=== PATIENT | female | born 1970 | race Caucasian/White ===

== ENCOUNTER 2019-08-15 04:43 | Emergency (ER) | payer OTHER ==
[~2019-08-15] VITALS: Ht 160 cm; Wt 76.2 kg
[2019-08-15 04:46] VITALS: BP 178/110
--- NOTE | 2019-08-15 06:41 | NUR ---
DR GRIGGS AT BEDSIDE
[2019-08-15 06:55] VITALS: BP 148/86
--- NOTE | 2019-08-15 06:55 | NUR ---
Patient discharged with v/s stable. Written and verbal after care instructions given and explained. Patient alert, oriented and verbalized understanding of instructions. Ambulatory with steady gait. All questions addressed prior to discharge. ID band removed. Patient advised to follow up with PMD. Rx of PROMETHAZINE given. Patient educated on indication of medication including possible reaction and side effects. Opportunity to ask questions provided and answered. INSTRUCTED TO CONTINUE TAKING MEDICATIONS PRESCRIBED BY PCP
--- NOTE | 2019-08-16 17:49 | NUR ---
message left on answering machine to call [facility] back [phone] repeat cxr with nipples markers as requested by instructed to return tonight or tomorrow morning
--- NOTE | 2019-08-17 06:28 | NUR ---
CALLED AND LEFT MESSAGE FOR CALL BACK AND F/U CARE.
== END 2019-08-15 06:55 | disposition home or self-care (01) ==
LOC: MED 04:43
DX: R05 Cough (principal)
CPT/HCPCS: 71046; 99283

== ENCOUNTER 2023-03-16 12:30 | Emergency (ER) | payer OTHER ==
[~2023-03-16] VITALS: Ht 165.1 cm; Wt 84.8 kg
[2023-03-16 12:39] VITALS: BP 185/109
--- NOTE | 2023-03-16 12:45 | NUR ---
AMB. TO BED 3 WITH NO DISTRESS
[2023-03-16] MEDS ORDERED: PROM118S5 PO (13:49)
[2023-03-16] MEDS ORDERED: ALBU0.0912 IH (13:53)
[2023-03-16] MEDS ORDERED: PRED50TA2 PO (13:53)
--- NOTE | 2023-03-16 14:41 | NUR ---
Patient discharged with v/s stable. Written and verbal after care instructions given and explained. Patient alert, oriented and verbalized understanding of instructions. Ambulatory with to home. All questions addressed prior to discharge. ID band removed. Patient advised to follow up with PMD. Rx of PROVENTIL,PROMETHAZINE, PREDNISONE given. Patient educated on indication of medication including possible reaction and side effects. Opportunity to ask questions provided and answered.
== END 2023-03-16 14:37 | disposition home or self-care (01) ==
LOC: MED 12:30
DX: J20.9 Acute bronchitis, unspecified (principal); F17.210 Nicotine dependence, cigarettes, uncomplicated; Z79.899 Other long term (current) drug therapy; Z72.89 Other problems related to lifestyle
CPT/HCPCS: 71045; 99283; Q0092

== ENCOUNTER 2023-04-26 15:42 | Emergency (ER) | payer OTHER ==
[~2023-04-26] VITALS: Ht 162.6 cm; Wt 82.2 kg
[~2023-04-26 15:42] MED LIST: ALBU0.0912 IH; PRED50TA2 PO; PROM118S5 PO
[2023-04-26 15:55] VITALS: BP 193/119; PULSE 77; RESP 20; TEMP 96.8; O2SAT 99
[2023-04-26 16:32] LABS: BASOPHILS % (AUTO) 0.4 % (0.0-2.0); EOSINOPHILS # (AUTO) 0.2 K/uL (0-0.4); EOSINOPHILS % (AUTO) 2.1 % (0.0-4.0); LYMPHOCYTES # (AUTO) 1.6 K/uL (2.5-16.5); LYMPHOCYTES % (AUTO) 22.5 % (20.5-51.1); MEAN CORPUSCULAR HEMOGLOBIN 25 pg (27-31); MEAN CORPUSCULAR HGB CONC 33 g/dL (33-37); MEAN CORPUSCULAR VOLUME 76.2 fL (80-94); MONOCYTES # (AUTO) 0.5 K/uL (0.8-1.0); MONOCYTES % (AUTO) 7.2 % (1.7-9.3); NEUTROPHILS # (AUTO) 4.8 K/uL (1.8-7.7); NEUTROPHILS % (AUTO) 67.8 % (42.2-75.2); PLATELET COUNT (AUTO) 205 K/uL (140-450); RED BLOOD CELL COUNT(AUTO) 5.64 MIL/uL (4.20-5.40); RED CELL DISTRIBUTION WIDTH 14.8 % (11.6-13.7); WHITE BLOOD COUNT (AUTO) 7.1 K/uL (4.8-10.8)
[2023-04-26 17:15] LABS: ALBUMIN 3.5 g/dL (3.4-5.0); CARBON DIOXIDE 30.7 mmol/L (21-32); CREATININE 0.7 mg/dL (0.6-1.3); POTASSIUM 3.7 mmol/L (3.5-5.1); TOTAL BILIRUBIN 0.3 mg/dL (0.0-1.0)
[2023-04-26] MEDS ORDERED: lisinopriL 20 MG TAB PO ONE (18:10)
[2023-04-26] MEDS ORDERED: AMLO10TA89 PO (18:18)
[2023-04-26 19:51] VITALS: BP 182/95; PULSE 75; RESP 14; TEMP 96.8; O2SAT 99
--- NOTE | 2023-04-26 19:51 | NUR ---
Patient discharged with v/s stable. Written and verbal after care instructions given and explained. Patient alert, oriented and verbalized understanding of instructions. Ambulatory with steady gait. All questions addressed prior to discharge. ID band removed. Patient advised to follow up with PMD. Rx of AMLODIPINE given. Patient educated on indication of medication including possible reaction and side effects. Opportunity to ask questions provided and answered.
== END 2023-04-26 19:51 | disposition home or self-care (01) ==
LOC: MED 15:42
DX: R11.0 Nausea (principal); R42 Dizziness and giddiness; R41.0 Disorientation, unspecified; E11.9 Type 2 diabetes mellitus without complications; I10 Essential (primary) hypertension; Z79.899 Other long term (current) drug therapy; Z20.822 Contact with and (suspected) exposure to COVID-19
CPT/HCPCS: 36415; 80053; 81002; 81025; 83690; 84484; 85025; 93005; 99284

== ENCOUNTER 2024-03-21 12:54 | Emergency (ER) | payer SELFPAY ==
[~2024-03-21] VITALS: Ht 165.1 cm; Wt 84.0 kg
[~2024-03-21 12:54] MED LIST changes: +AMLO10TA89 PO
[2024-03-21 13:08] VITALS: BP 195/103; PULSE 71; RESP 20; TEMP 97.7; O2SAT 97
[2024-03-21 13:17] VITALS: O2SAT 97
[2024-03-21 14:03] LABS: BILIRUBIN,URINE NEGATIVE (NEGATIVE); BLOOD, URINE 2+ (NEGATIVE); COLOR,URINE YELLOW (YELLOW); LEUKOCYTE ESTERASE ,URINE 1+ (NEGATIVE); NITRITE, URINE NEGATIVE (NEGATIVE); PROTEIN,URINE 1+ (NEGATIVE); UGLUCOSE NEGATIVE (NEGATIVE); UROBILINOGEN,URINE 0.2 EU/dL (0.2 - 1)
[2024-03-21 14:07] LABS: BASOPHILS % (AUTO) 0.2 % (0.0-2.0); EOSINOPHILS # (AUTO) 0.1 K/uL (0-0.4); EOSINOPHILS % (AUTO) 1.3 % (0.0-4.0); HEMATOCRIT 45.8 % (36-48); HEMOGLOBIN 15.2 g/dL (12.0-16.0); LYMPHOCYTES # (AUTO) 1.4 K/uL (2.5-16.5); LYMPHOCYTES % (AUTO) 16.2 % (20.5-51.1); MEAN CORPUSCULAR HEMOGLOBIN 25 pg (27-31); MEAN CORPUSCULAR HGB CONC 33 g/dL (33-37); MEAN CORPUSCULAR VOLUME 75.9 fL (80-94); MONOCYTES # (AUTO) 0.4 K/uL (0.8-1.0); NEUTROPHILS # (AUTO) 6.7 K/uL (1.8-7.7); NEUTROPHILS % (AUTO) 77.3 % (42.2-75.2); PLATELET COUNT (AUTO) 225 K/uL (140-450); RED BLOOD CELL COUNT(AUTO) 6.04 MIL/uL (4.20-5.40); RED CELL DISTRIBUTION WIDTH 14.9 % (11.6-13.7); WHITE BLOOD COUNT (AUTO) 8.7 K/uL (4.8-10.8)
[2024-03-21 14:08] LABS: APPEARANCE,URINE SLIGHTLY HAZY (CLEAR)
[2024-03-21] MEDS: ENALAPRILAT 2.5 MG/2 ML VIAL IVP ONE (14:09)
[2024-03-21 14:25] LABS: ANION GAP 9.2 (8-16); CALCIUM 9.2 mg/dL (8.5-10.1); CARBON DIOXIDE 32.5 mmol/L (21-32); CREATININE 0.7 mg/dL (0.6-1.3); POTASSIUM 3.7 mmol/L (3.5-5.1)
[2024-03-21 14:31] LABS: ALANINE AMINOTRANSFERASE 37 U/L (12-78); ALBUMIN 3.4 g/dL (3.4-5.0); ALKALINE PHOSPHATASE 110 U/L (50-136); ASPARTATE AMINOTRANSFERASE 20 U/L (15-37); BILIRUBIN,DIRECT 0.1 mg/dL (0.0-0.3); TOTAL BILIRUBIN 0.3 mg/dL (0.0-1.0); TOTAL PROTEIN, SERUM 6.9 g/dL (6.4-8.2)
[2024-03-21 14:33] LABS: BACTERIA,URINE 2+ /HPF (None Seen); MUCUS,URINE None Seen /LPF (None Seen); SQUAMOUS EPITHELIAL CELL,UR 4-10 (MOD) /LPF (0-3 (FEW))
[2024-03-21 15:06] VITALS: O2SAT 98
[2024-03-21] MEDS ORDERED: NITR100C7 PO (15:26)
[2024-03-21] MEDS ORDERED: HYDR12.51 PO (15:26)
[2024-03-21 15:34] VITALS: BP 171/100; PULSE 76; RESP 18; TEMP 98.2; O2SAT 98
== END 2024-03-21 15:34 | disposition home or self-care (01) ==
LOC: MED 12:54
DX: N39.0 Urinary tract infection, site not specified (principal); I10 Essential (primary) hypertension; E11.9 Type 2 diabetes mellitus without complications; Z79.899 Other long term (current) drug therapy; Z79.4 Long term (current) use of insulin
CPT/HCPCS: 36415; 71045; 80048; 80076; 81001; 82948; 83880; 84484; 85025; 87086; 93005; 96374; 99285; J3490